=== PATIENT | male | born 1985 | race African-American/Black ===

== ENCOUNTER 2018-07-20 16:56 | Emergency (ER) | payer MEDICAID ==
[~2018-07-20] VITALS: Ht 172.7 cm; Wt 70.0 kg
[2018-07-20] MEDS ORDERED: TETANUS, DIPHTHERIA, PERTUSSIS VAC/PF 0.5ML (>7YR OLD) IM ONE (21:00)
[2018-07-20] MEDS ORDERED: BACITRACIN ZINC OINT UDPKT TOP ONE (21:00)
[2018-07-20] MEDS ORDERED: LIDOCAINE HCL/PF 1% 10 MG/ML 5ML VIAL IJ ONE (21:00)
[2018-07-20] MEDS ORDERED: IBUPROFEN 600MG TABLET PO ONE (21:30)
[2018-07-20 22:24] VITALS: BP 118/80
== END 2018-07-20 22:25 | disposition home or self-care (01) ==
LOC: ER 17:18
DX: S01.111A Laceration without foreign body of right eyelid and periocular area, initial encounter (principal); W18.39XA Other fall on same level, initial encounter; Y93.67 Activity, basketball; Y92.310 Basketball court as the place of occurrence of the external cause; Y99.8 Other external cause status
CPT/HCPCS: 12013; 99283; J3490; Z7610; 90715

== ENCOUNTER 2018-07-30 19:12 | Emergency (ER) | payer MEDICAID ==
[~2018-07-30] VITALS: Ht 180.3 cm; Wt 67.0 kg
[2018-07-30 19:58] VITALS: BP 115/75
== END 2018-07-30 22:09 | disposition home or self-care (01) ==
LOC: ER 21:35
DX: Z48.02 Encounter for removal of sutures (principal); F17.210 Nicotine dependence, cigarettes, uncomplicated
CPT/HCPCS: 99283

== ENCOUNTER 2018-12-23 20:41 | Emergency (ER) | payer MEDICAID ==
[~2018-12-23] VITALS: Ht 180.3 cm; Wt 64.0 kg
[2018-12-24] MEDS ORDERED: KETOROLAC 15MG/ML VIAL IM ONE (02:45)
[2018-12-24] MEDS ORDERED: TETANUS, DIPHTHERIA, PERTUSSIS VAC/PF 0.5ML (>7YR OLD) IM ONE (03:00)
[2018-12-24 03:34] VITALS: BP 102/59
== END 2018-12-24 03:44 | disposition home or self-care (01) ==
LOC: ER 20:41
DX: S30.810A Abrasion of lower back and pelvis, initial encounter (principal); M54.5 Low back pain; W19.XXXA Unspecified fall, initial encounter; Y93.89 Activity, other specified; Y92.89 Other specified places as the place of occurrence of the external cause; Y99.8 Other external cause status
CPT/HCPCS: 90471; 90715; 96372; 99283; J1885; Z7610